=== PATIENT | female | born 1960 | race Hispanic/Latino ===

== ENCOUNTER 2018-01-02 16:17 | Emergency (ER) | payer MEDICARE ==
[~2018-01-02 16:17] MED LIST: ATOR20TA65 PO; DICY20TA11 PO; ESOM40CA54 PO; FAMO20TA8 PO; GABA-533 PO; LISI-613 PO; LORA1TAB3 PO; METO10TA3 PO; MONT10TA24 PO; SERT100T12 PO
[2018-01-02] MEDS ORDERED: SODIUM CHLORIDE 0.9% 1000ML 1,000 ML IV ONE (17:01)
[2018-01-02 17:04] LABS: BASOPHILS % (AUTO) 1.3 % (0.0-5.0); EOSINOPHILS % (AUTO) 1.2 % (0.0-8.0); HEMATOCRIT 43.7 % (36-48); MEAN CORPUSCULAR HEMOGLOBIN 33.6 pg (27.0-33.0); MEAN CORPUSCULAR HGB CONC 35.3 g/dL (32.0-36.0); MEAN CORPUSCULAR VOLUME 95.1 fL (79-99); MONOCYTES % (AUTO) 5.1 % (3.0-13.0); NEUTROPHILS % (AUTO) 68.4 % (40.0-77.0); NUCLEATED RED BLOOD CELLS 0.1 % (0.0-0.19); PLATELET COUNT (AUTO) 250 K/uL (130-400); RED CELL DISTRIBUTION WIDTH 12.9 % (11.0-15.5); WHITE BLOOD COUNT (AUTO) 11.7 K/uL (4.8-10.8)
[2018-01-02 17:15] LABS: CREATININE 0.8 mg/dL (0.5-1.5); POTASSIUM 3.7 mmol/L (3.5-5.1)
[2018-01-02 17:28] LABS: ALBUMIN 3.5 g/dL (3.5-5.0); BILIRUBIN,TOTAL 0.6 mg/dL (0.2-1.0); TOTAL PROTEIN, SERUM 7.1 g/dL (6.0-8.3)
== END 2018-01-02 18:19 | disposition home or self-care (01) ==
LOC: EDH 16:17
DX: R55 Syncope and collapse (principal); Z90.49 Acquired absence of other specified parts of digestive tract; Z98.51 Tubal ligation status; Z98.890 Other specified postprocedural states; Z72.0 Tobacco use; Z88.6 Allergy status to analgesic agent
CPT/HCPCS: 36415; 80053; 84484; 85025; 93005; 96360; 99285; J7030

== ENCOUNTER 2023-03-13 11:49 | Emergency (ER) | payer MEDICARE, OTHER ==
[~2023-03-13] VITALS: Ht 154.9 cm; Wt 52.2 kg
[~2023-03-13 11:49] MED LIST changes: -DICY20TA11 PO; +DICY20TA3 PO; -GABA-533 PO; +GABA-534 PO; -LISI-613 PO; +LISI20TA24 PO; +MONT-39 PO; -MONT10TA24 PO; +OXYC-38 PO; +SERT-440 PO; -SERT100T12 PO; +SULF1TAB42 PO
[2023-03-13 12:31] LABS: BASOPHILS # (AUTO) 0.03 K/uL (0.00-0.20); BASOPHILS % (AUTO) 0.3 % (0.0-5.0); EOSINOPHILS # (AUTO) 0.08 K/uL (0.00-0.70); EOSINOPHILS % (AUTO) 0.9 % (0.0-8.0); HEMATOCRIT 38.8 % (36-48); IMMATURE GRANULOCYTE ABSOLUTE 0.03 K/uL (0-1); LYMPHOCYTES % (AUTO) 11.7 % (21.0-51.0); MEAN CORPUSCULAR HEMOGLOBIN 31.6 pg (27.0-33.0); MEAN CORPUSCULAR HGB CONC 33.8 g/dL (32.0-36.0); MEAN CORPUSCULAR VOLUME 93.5 fL (79-99); MONOCYTES # (AUTO) 0.5 K/uL (0.1-1.0); MONOCYTES % (AUTO) 6.1 % (3.0-13.0); NEUTROPHILS % (AUTO) 80.7 % (40.0-77.0); PLATELET COUNT (AUTO) 337 K/uL (130-400); RED BLOOD CELL COUNT(AUTO) 4.15 MIL/uL (4.00-5.50); WHITE BLOOD COUNT (AUTO) 8.7 K/uL (4.8-10.8)
[2023-03-13 12:43] LABS: CARBON DIOXIDE 26 mmol/L (21-32); CHLORIDE 101 mmol/L (101-111); CREATININE 0.5 mg/dL (0.5-1.5); GLOMERULAR FILTR. RATE CALC 107 mL/min (>90); GLUCOSE,RANDOM 133 mg/dL (70-105); POTASSIUM 3.6 mmol/L (3.5-5.1); SODIUM SERUM 137 mmol/L (136-145); UREA NITROGEN, BLOOD 13 mg/dL (7-18)
[2023-03-13 12:47] LABS: ALBUMIN 3.6 g/dL (3.5-5.0); ASPARTATE AMINOTRANSFERASE 5 U/L (10-37); BILIRUBIN,TOTAL 0.6 mg/dL (0.2-1.0); TOTAL PROTEIN, SERUM 7.6 g/dL (6.0-8.3)
[2023-03-13 12:48] LABS: ALANINE AMINOTRANSFERASE < 6 U/L (12-78)
[2023-03-13 12:57] LABS: APPEARANCE,URINE CLOUDY (CLEAR); BILIRUBIN,URINE NEGATIVE (NEGATIVE); COLOR,URINE YELLOW (YELLOW); GLUCOSE, URINE (UA) NEGATIVE (NEGATIVE); KETONES,URINE NEGATIVE (NEGATIVE); LEUKOCYTE ESTERASE ,URINE 500 Leu/uL (NEGATIVE); NITRATE,URINE NEGATIVE (NEGATIVE); OCCULT BLOOD,URINE SMALL (NEGATIVE); PROTEIN,URINE 20 mg/dL (NEGATIVE)
[2023-03-13 13:00] LABS: ADD UA MICROSCOPIC YES
[2023-03-13 13:05] LABS: BACTERIA,URINE MOD /HPF (None Seen); MUCUS,URINE FEW LPF (None Seen); SQUAMOUS EPITHELIAL CELL,UR MANY /HPF (0-2); WBC,URINE 51-100 /HPF (0-1)
[2023-03-13 13:10] VITALS: BP 124/66; PULSE 66; RESP 20; O2SAT 99
[2023-03-13] MEDS ORDERED: FAMOTIDINE 20MG VIAL IV ONE (13:30)
[2023-03-13] MEDS ORDERED: LACTATED RINGERS 1000ML 1,000 ML IV ONE (13:30)
[2023-03-13] MEDS ORDERED: METOCLOPRAMIDE 10 MG/2 ML VIAL IVP ONE (13:30)
[2023-03-13] MEDS ORDERED: MORPHINE 4 MG SYG IVP ONE (13:30)
[2023-03-13] MEDS ORDERED: CEPH500B PO (15:46)
[2023-03-13] MEDS ORDERED: FAMO-136 PO (15:46)
[2023-03-13] MEDS ORDERED: CEFTRIAXONE 2GM VIAL IVPB ONE (16:00)
== END 2023-03-13 16:24 | disposition home or self-care (01) ==
LOC: EDH 11:49
DX: K29.70 Gastritis, unspecified, without bleeding (principal); N39.0 Urinary tract infection, site not specified; F41.9 Anxiety disorder, unspecified; F32.A Depression, unspecified; K21.9 Gastro-esophageal reflux disease without esophagitis; Z79.899 Other long term (current) drug therapy
CPT/HCPCS: 99284; 96365; 96375; 80053; 83690; 85025; 87088; 81001; 36415; 93005; J7120; J3490; J0696; J2270; J2765

== ENCOUNTER 2023-03-19 12:37 | Emergency (ER) | payer OTHER ==
[~2023-03-19] VITALS: Ht 160 cm; Wt 79.4 kg
[~2023-03-19 12:37] MED LIST changes: +CEPH500B PO; +FAMO-136 PO
[2023-03-19] MEDS ORDERED: DICYCLOMINE HCL 10 MG/5 ML ML PO ONE (13:00)
[2023-03-19] MEDS ORDERED: MAG/ALUM/SIMETH 30 ML UDCUP PO ONE (13:00)
[2023-03-19] MEDS ORDERED: FAMOTIDINE 20MG TAB PO ONE (13:00)
[2023-03-19] MEDS ORDERED: ONDANSETRON 4MG INJ IVP ONE (13:00)
[2023-03-19] MEDS ORDERED: LIDOCAINE HCL 2% VISCOUS 15 ML UDCUP PO ONE (13:00)
[2023-03-19 13:09] LABS: BASOPHILS # (AUTO) 0.03 K/uL (0.00-0.20); BASOPHILS % (AUTO) 0.3 % (0.0-5.0); EOSINOPHILS # (AUTO) 0.01 K/uL (0.00-0.70); EOSINOPHILS % (AUTO) 0.1 % (0.0-8.0); HEMATOCRIT 37.7 % (36-48); IMMATURE GRANULOCYTE ABSOLUTE 0.04 K/uL (0-1); LYMPHOCYTES # (AUTO) 0.7 K/uL (1.0-4.8); MEAN CORPUSCULAR HEMOGLOBIN 31.7 pg (27.0-33.0); MEAN CORPUSCULAR HGB CONC 33.7 g/dL (32.0-36.0); MONOCYTES # (AUTO) 0.5 K/uL (0.1-1.0); MONOCYTES % (AUTO) 4.9 % (3.0-13.0); NEUTROPHILS # (AUTO) 8.2 K/uL (1.8-7.7); NEUTROPHILS % (AUTO) 87.3 % (40.0-77.0); PLATELET COUNT (AUTO) 346 K/uL (130-400); RED BLOOD CELL COUNT(AUTO) 4.01 MIL/uL (4.00-5.50); RED CELL DISTRIBUTION WIDTH 11.8 % (11.0-15.5); WHITE BLOOD COUNT (AUTO) 9.4 K/uL (4.8-10.8)
[2023-03-19 13:22] LABS: CREATININE 0.7 mg/dL (0.5-1.5); POTASSIUM 3.7 mmol/L (3.5-5.1)
[2023-03-19 13:26] LABS: BILIRUBIN,TOTAL 0.5 mg/dL (0.2-1.0); TOTAL PROTEIN, SERUM 7.3 g/dL (6.0-8.3)
[2023-03-19] MEDS ORDERED: MORPHINE 2 MG SYG IVP ONE (14:00)
[2023-03-19] MEDS ORDERED: 0.9%NACL 1000ML 1,000 ML IV ONE (14:00)
[2023-03-19] MEDS ORDERED: IOHEXOL-350 75 ML VIAL IV ONE (15:01)
[2023-03-19 16:53] VITALS: BP 142/78; PULSE 78; RESP 18; O2SAT 98
[2023-03-19 17:04] LABS: ADD UA MICROSCOPIC YES; APPEARANCE,URINE CLEAR (CLEAR); BILIRUBIN,URINE NEGATIVE (NEGATIVE); COLOR,URINE COLORLESS (YELLOW); GLUCOSE, URINE (UA) NEGATIVE (NEGATIVE); KETONES,URINE NEGATIVE (NEGATIVE); LEUKOCYTE ESTERASE ,URINE NEGATIVE Leu/uL (NEGATIVE); NITRATE,URINE NEGATIVE (NEGATIVE); OCCULT BLOOD,URINE NEGATIVE (NEGATIVE); PH,URINE 8.5 (5.0-8.0); PROTEIN,URINE 10 mg/dL (NEGATIVE); UROBILINOGEN,URINE 0.2 mg/dL (0.2-1.0)
[2023-03-19 17:06] LABS: BACTERIA,URINE RARE /HPF (None Seen); SQUAMOUS EPITHELIAL CELL,UR RARE /HPF (0-2); WBC,URINE 0-1 /HPF (0-1); YEAST,URINE BUDDING FEW /HPF (None Seen)
== END 2023-03-19 17:39 | disposition home or self-care (01) ==
LOC: EDH 12:37
DX: K29.70 Gastritis, unspecified, without bleeding (principal); F41.9 Anxiety disorder, unspecified; F32.A Depression, unspecified; K21.9 Gastro-esophageal reflux disease without esophagitis; Z98.890 Other specified postprocedural states; Z90.49 Acquired absence of other specified parts of digestive tract
CPT/HCPCS: 99285; 74178; 96374; 96375; 84484; 80053; 83690; 85025; 81001; 36415; 93005; J2270; J2405; Q9967

== ENCOUNTER 2024-08-11 22:07 | Emergency (ER) | payer OTHER, MEDICARE ==
[~2024-08-11 22:07] MED LIST changes: -ESOM40CA54 PO; +ESOM40CA66 PO; +IBUP-2070 PO
--- NOTE | 2024-08-11 22:29 | ERN ---
ED Note History of Present Illness Stated Complaint: ABDOMINAL PAIN, LETHARGIC Chief Complaint: Abdominal Pain Time Seen by MD: 22:11 Dictation: This is a 63-year-old female who was brought by EMS for abdominal pain and being very lethargic. They indicated that they found drug paraphernalia on her bed. She is easily arousable and answers questions appropriately but falls asleep quickly. She was eventually honest and admitted to doing cocaine. . Temperature 98 pulse 46 respirations 16 blood pressure 158/64 pulse oximetry 100% on room air Her chronic medical problems include anxiety, depression, bipolar disorder, hypercholesterolemia, GERD, history of asthma Allergies: Coded Allergies: No Known Drug Allergies (Unverified Allergy, Unknown, 07/23/22) Home Meds Active Scripts Nitrofurantoin Monohyd/M-Cryst (Macrobid 100 mg Capsule) 100 Mg Capsule, 1 CAP PO BID for 7 Days, #14 CAP 0 Refills Prov:LAINE CARROLL MD 08/12/24 Ibuprofen (Ibuprofen) 600 Mg Tablet, 600 MG PO Q6H PRN for PAIN, #30 TAB Prov:ALEJANDRA HARO MD 09/06/23 Cephalexin Monohydrate (Keflex) 500 Mg Cap, 500 MG PO QID for 10 Days, #40 CAP 0 Refills Prov:JODY BARR Sr., MD 03/13/23 Famotidine (Pepcid) 20 Mg Tablet, 20 MG PO BID, #60 TAB 2 Refills Prov:JODY BARR Sr., MD 03/13/23 Oxycodone HCl/Acetaminophen (Percocet 5-325 mg Tablet) 1 Each Tablet, 1 EACH PO Q6H for pain, #12 TAB 0 Refills Prov:ESTRELLITA PALENCIA MD 07/23/22 Sulfamethoxazole/Trimethoprim (Bactrim Ds Tablet) 1 Each Tablet, 1 TAB PO BID for 10 Days, #20 TAB 0 Refills Prov:ESTRELLITA PALENCIA MD 07/23/22 Reported Medications Dicyclomine HCl (Dicyclomine HCl) 20 Mg Tablet, 20 MG PO Q6 HOURS, TAB 09/08/16 Famotidine (Famotidine) 20 Mg Tablet, 20 MG PO AM, TAB 09/08/16 Montelukast Sodium (Montelukast Sodium) 10 Mg Tablet, 10 MG PO HS, TAB 09/08/16 Sertraline HCl (Sertraline HCl) 100 Mg Tablet, 100 MG PO BID, TAB 09/08/16 Atorvastatin Calcium (Atorvastatin Calcium) 20 Mg Tablet, 20 MG PO AM, TAB 09/08/16 Metoclopramide HCl (Metoclopramide HCl) 10 Mg Tablet, 10 MG PO QID, TAB 09/08/16 Lisinopril (Lisinopril) 20 Mg Tablet, 20 MG PO AM, TAB 09/08/16 Esomeprazole Magnesium (Esomeprazole Magnesium) 40 Mg Capsule.dr, 40 MG PO BID, CAP 09/08/16 Lorazepam (Lorazepam) 1 Mg Tablet, 1 MG PO HS, TAB 09/08/16 Gabapentin (Gabapentin) 400 Mg Capsule, 400 MG PO TID, CAP 09/08/16 Past Medical History Past Medical History: Anxiety, Bipolar, Depression, Schizophrenia Additional Past Medical Hx: OSTEOARTHRITIS Surgical History: Unknown Social History: Drugs (Cocaine abuse), Negative History: Not Applicable RN Note Reviewed/Agreed w/PFSH: Yes Review of System Dictation Constitutional: Negative for fever,chills, and weight loss Eyes: Negative for injury, pain,redness, and discharge ENT: Negative for injury,pain or swelling Cardiovascular: Negative for chest pain, palpitations, and edema Respiratory: Negative for shortness of breath, cough, and wheezing, Abdomen/GI: Negative for abdominal pain, nausea, vomiting, diarrhea, and constipation Back: Negative for injury and pain : Negative for injury, bleeding and discharge MS/Extremity: Negative for injury and deformity Skin: Negative for rash, and discoloration Neuro: Negative for headache, weakness, numbness, tingling, and seizure Psych: Negative for suicide ideation, homicidal ideation, and hallucinations Initial Vital Sign VS Vital Signs Date Time Temp Pulse Resp B/P (MAP) Pulse Ox O2 Delivery O2 Flow Rate FiO2 08/11/24 22:10 98.1 46 16 158/64 100 Nonrebreathing Mask 10.0 08/11/24 22:54 21 Physical Exam Dictation General: awake, alert, NAD Head/Face: Normocephalic, atraumatic Eyes: PERRL, EOMI, vision at baseline ENT: oral cavity clear, TMs clear, no signs of infection Neck: Trachea midline, supple, no nuchal rigidity Cardiovascular: RRR, normal S1/S2, No MRGs, no JVD Respiratory: CTAB, no respiratory distress, No rales or wheezes Abdomen: Soft, non-tender, non-distended, normal bowel sounds, no guarding or rebound. Skin: Warm, dry, normal turgor, no rash MS/Extremity: Pulses equal, no cyanosis, neurovascular intact, FROM Neuro: COAx4, GCS 15, strength 5/5, CN 2-12 intact, normal cerebellar exam, normal gait, Psych: Normal behavior, mood, and affect normal Extremities-trace edema without any palpable cords, Homans sign is negative Results (Laboratory/Radiology) Laboratory/Radiology Laboratory Tests Test 08/11/24 22:43 08/12/24 02:28 White Blood Count 9.2 K/uL (4.8-10.8) Red Blood Count 4.36 MIL/uL (4.00-5.50) Hemoglobin 12.6 g/dL (12.0-16.0) Hematocrit 39.0 % (36-48) Mean Corpuscular Volume 89.4 fL (79-99) Mean Corpuscular Hemoglobin 28.9 pg (27.0-33.0) Mean Corpuscular Hemoglobin Concent 32.3 g/dL (32.0-36.0) Red Cell Distribution Width 13.3 % (11.0-15.5) Platelet Count 304 K/uL (130-400) Mean Platelet Volume 9.0 fL (7.5-10.5) Immature Granulocyte % (Auto) 0.3 % (0-1) Neutrophils (%) (Auto) 87.4 % (40.0-77.0) H Lymphocytes (%) (Auto) 6.1 % (21.0-51.0) L Monocytes (%) (Auto) 5.3 % (3.0-13.0) Eosinophils (%) (Auto) 0.5 % (0.0-8.0) Basophils (%) (Auto) 0.4 % (0.0-5.0) Neutrophils # (Auto) 8.0 K/uL (1.8-7.7) H Lymphocytes # (Auto) 0.6 K/uL (1.0-4.8) L Monocytes # (Auto) 0.5 K/uL (0.1-1.0) Eosinophils # (Auto) 0.05 K/uL (0.00-0.70) Basophils # (Auto) 0.04 K/uL (0.00-0.20) Absolute Immature Granulocyte (auto 0.03 K/uL (0-1) Nucleated Red Blood Cells 0.0 % (0.0-0.19) White Cell Morphology Comment CONSISTENT W/DIFF Platelet Morphology LARGE PLTS PRESENT Sodium Level 139 mmol/L (136-145) Potassium Level 3.9 mmol/L (3.5-5.1) Chloride Level 103 mmol/L (101-111) Carbon Dioxide Level 31 mmol/L (21-32) Blood Urea Nitrogen 9 mg/dL (7-18) Creatinine 0.6 mg/dL (0.5-1.0) Glomerular Filtration Rate Calc 101 mL/min (>90) Random Glucose 130 mg/dL (70-105) H Total Calcium 8.8 mg/dL (8.5-10.1) Total Creatine Kinase 38 U/L (21-232) # Salicylates Level < 2.8 mg/dL (2.8-20.0) L Acetaminophen Level < 1 mcg/mL (10-30) L Serum Alcohol < 3 mg/dL (0-10) Urine Color YELLOW (YELLOW) Urine Appearance CLOUDY (CLEAR) H Urine pH 7.0 (5.0-8.0) Urine Specific [place] 1.017 (1.001-1.031) Urine Protein NEGATIVE mg/dL (NEGATIVE) Urine Glucose (UA) NEGATIVE mg/dL (NEGATIVE) Urine Ketones 40 mg/dL (NEGATIVE) H Urine Occult Blood SMALL (NEGATIVE) H Urine Nitrate NEGATIVE (NEGATIVE) Urine Bilirubin NEGATIVE mg/dL (NEGATIVE) Urine Urobilinogen 2.0 mg/dL (0.2-1.0) H Urine Leukocyte Esterase 250 Rishi/uL (NEGATIVE) H Urine RBC 6-10 /HPF (0-1) H Urine WBC 11-25 /HPF (0-1) H Urine Squamous Epithelial Cells RARE /HPF (0-2) Urine Bacteria RARE /HPF (None Seen) Urine Opiates Screen NEGATIVE (NEGATIVE) Urine Barbiturates Screen NEGATIVE (NEGATIVE) Urine Phencyclidine Screen NEGATIVE (NEGATIVE) Urine Amphetamines Screen NEGATIVE (NEGATIVE) Urine Benzodiazepines Screen NEGATIVE (NEGATIVE) Urine Cocaine Screen POSITIVE (NEGATIVE) H Urine Marijuana (THC) Screen NEGATIVE (NEGATIVE) Labs Reviewed?: Yes EKG Comment: Twelve lead EKG done on 08/11/2024 at 10:40 p.m. showed a heart rate of 48, IN interval 129, QRS 86, QT/QTC 463/413 Impression sinus bradycardia with overall somewhat low voltage no acute ST elevations or deep ST depressions noted. Interpreted by Dr. Margaret BOWEN MD ED Course ED Course Orders Procedure Category Date Status Time Cbc With Differential LAB 08/11/24 Complete : Alcohol, Blood LAB 08/11/24 Complete : Salicylate LAB 08/11/24 Complete 22: Acetaminophen LAB 08/11/24 Complete 22: Urinalysis Profile LAB 08/11/24 Complete 22: Chest 1vw RAD 08/11/24 Resulted 22: 12 Lead Ekg Tracing- EKG 08/11/24 Logged Technical 22: 0.9%Nacl 1000ml (Ns PHA 08/11/24 In Process 1000ml) 22:30 Creatine Kinase, Total LAB 08/11/24 Complete 22: Basic Metabolic Panel LAB 08/11/24 Complete 22:25 Drug Screen Urine LAB 08/11/24 Complete 22:25 Ondansetron 4mg Inj PHA 08/12/24 Complete (Zofran 4mg Inj) 00:00 Culture Urine SHAHZAD 08/12/24 In Process 03:20 Ceftriaxone 1g Vial PHA 08/12/24 Complete (Rocephine 1g Inj) 04:00 Current Medications Medications (Trade) Dose Ordered Sig/[place] Route PRN Reason Start Time Stop Time Status Last Admin Dose Admin Ceftriaxone Sodium (ROCEphine 1G INJ) 1 gm ONCE ONCE IVPB 08/12/24 04:00 08/12/24 04:01 DC 08/12/24 05:06 Ondansetron HCl (zoFRAN 4MG INJ) 4 mg ONCE ONCE IVP 08/12/24 00:00 08/12/24 00:01 DC 08/11/24 23:51 Sodium Chloride 1,000 ml @ 125 mls/hr ONCE ONCE IV 08/11/24 22:30 08/12/24 06:29 08/11/24 23:07 Vital Signs Date Time Temp Pulse Resp B/P (MAP) Pulse Ox O2 Delivery O2 Flow Rate FiO2 08/12/24 02:56 98.4 62 18 145/62 100 Room Air* 0 21 08/11/24 22:54 98.4 56 18 133/65 99 Room Air* 0 21 08/11/24 22:10 98.1 46 16 158/64 100 Nonrebreathing Mask 10.0 We will perform diagnostic labs, advanced imaging and administer medications according to the patient's complaint. Once the results are available, will review and personally interpreted the labs to rule out any acute life- threatening emergency the trach require immediate intervention and treatment. I will then re-evaluate the patient after treatment and diagnostic exams have return to determine whether the patient requires any further testing, can safely be discharged home or need further admission to hospital for additional treatment and evaluation. There was an inordinate delay in obtaining labs and urinalysis as patient was not ready to urinate. She refused to have the nurses straight cath in and out. Patient received fluids after which she was able to give a urine sample . CBC BNP 7 are within normal limits chest x-ray was negative for any acute infiltrate. Serum salicylate levels Tylenol levels were negative alcohol level was less than 3. Urine drug screen was positive for cocaine Urinalysis was significant for increased leuko esterase and WBCs consistent with UTI Empiric antibiotic therapy we will give a dose of Rocephin Patient is very awake alert easily answers all the questions appropriately and oriented x4 I will discharge her with outpatient antibiotic therapy. Patient has to call her ride to pick her up. Medical Decision Making MDM MDM: Differential diagnosis: Lethargy from recreational drugs, acute metabolic encephalopathy from sepsis, Rationale: Tests considered and ordered secondary to shared decision making include: Previous outside records reviewed: Old ER visits. Risk of complication and/or morbidity or mortality of patient management: None Medications-Per medication reconciliation Need for hospitalization: Patient does not meet criteria for hospitalization. Need for emergency major/minor surgery: No There are no social concerns with this patient. Prescription drug management Prescriptions will include symptomatic care Patient's prior external medical records from other ER visits were reviewed by me as indicated. Prior testing and results from previous visits were reviewed. Prior tests were taken into account with medical decision making and resource utilization, independent historian/historians were used to obtain complete medical history. I independently interpreted the test that were performed, results were reviewed by me and considered findings on radiology if ordered. Medical management and examination interpretation discussions were had by me with other qualified healthcare professionals as indicated for the patient's care. Problem List Problem List: (1) Lethargy (2) Acute metabolic encephalopathy (3) Cocaine abuse (4) Urinary tract infection DX & DISP Disposition: Discharge Departure Impression: Primary Impression: Acute metabolic encephalopathy Additional Impressions: Lethargy, Cocaine abuse, Urinary tract infection Condition: Stable Scripts Nitrofurantoin Monohyd/M-Cryst (Macrobid 100 mg Capsule) 100 Mg Capsule 1 CAP PO BID for 7 Days, #14 CAP 0 Refills Prov: LAINE CARROLL MD 08/12/24 Additional Instructions: Patient and the caregiver have been informed of all the diagnostic tests and the imaging conducted during the today's visit to the emergency room and has verbalized understanding of the results I have personally reviewed and interpreted all diagnostic exams performed here in the ER today as well as the vital signs documented by the nursing staff. The patient is now being discharged to home and should follow up with the primary care physician or the specialist as directed by the ER staff. Follow-up with primary care provider in 1 to 2 days. Take medications as directed here in the emergency room. Okay to continue home medications unless otherwise discussed during your visit in the emergency room today. Return to your nearest emergency room if symptoms worsen or if there is no improvement. Call 911 if you need immediate assistance. Take Tylenol or Motrin [id number] as needed and if no contraindications are present. Increase oral hydration. A wound culture or urine culture was ordered here in the emergency room department please follow-up with primary care provider and advise them to get repeat ports from our facility. If you had any Rock wrap/splints that were applied here, please do not remove them until you see your primary care or specialty. Referrals: EILEEN KEBEDE MD (PCP) LAINE CARROLL MD Aug 11, 2024 22:28
[2024-08-11 22:56] LABS: BASOPHILS # (AUTO) 0.04 K/uL (0.00-0.20); BASOPHILS % (AUTO) 0.4 % (0.0-5.0); EOSINOPHILS # (AUTO) 0.05 K/uL (0.00-0.70); EOSINOPHILS % (AUTO) 0.5 % (0.0-8.0); IMMATURE GRANULOCYTE ABSOLUTE 0.03 K/uL (0-1); LYMPHOCYTES # (AUTO) 0.6 K/uL (1.0-4.8); LYMPHOCYTES % (AUTO) 6.1 % (21.0-51.0); MEAN CORPUSCULAR HEMOGLOBIN 28.9 pg (27.0-33.0); MEAN CORPUSCULAR HGB CONC 32.3 g/dL (32.0-36.0); MEAN CORPUSCULAR VOLUME 89.4 fL (79-99); MONOCYTES # (AUTO) 0.5 K/uL (0.1-1.0); MONOCYTES % (AUTO) 5.3 % (3.0-13.0); NEUTROPHILS % (AUTO) 87.4 % (40.0-77.0); PLATELET COUNT (AUTO) 304 K/uL (130-400); RED BLOOD CELL COUNT(AUTO) 4.36 MIL/uL (4.00-5.50); RED CELL DISTRIBUTION WIDTH 13.3 % (11.0-15.5); WHITE BLOOD COUNT (AUTO) 9.2 K/uL (4.8-10.8)
[2024-08-11 23:06] LABS: CARBON DIOXIDE 31 mmol/L (21-32); CHLORIDE 103 mmol/L (101-111); CREATININE 0.6 mg/dL (0.5-1.0); GLOMERULAR FILTR. RATE CALC 101 mL/min (>90); GLUCOSE,RANDOM 130 mg/dL (70-105); POTASSIUM 3.9 mmol/L (3.5-5.1); SODIUM SERUM 139 mmol/L (136-145); UREA NITROGEN, BLOOD 9 mg/dL (7-18)
[2024-08-11] MEDS: 0.9%NACL 1000ML 1,000 ML IV ONE (23:07)
[2024-08-11 23:11] LABS: ACETAMINOPHEN < 1 mcg/mL (10-30); ALCOHOL, BLOOD < 3 mg/dL (0-10); CREATINE KINASE, TOTAL 38 U/L (21-232); SALICYLATE < 2.8 mg/dL (2.8-20.0)
[2024-08-11] MEDS: ondanSETRON 4MG INJ IVP ONE (23:51)
[2024-08-12 00:28] LABS: PLATELET MORPHOLOGY LARGE PLTS PRESENT; WBC MORPHOLOGY CONSISTENT W/DIFF
--- NOTE | 2024-08-12 00:52 | HMCIMG ---
CHEST 1VW HISTORY: Altered mental status COMPARISON: 09/06/2023 FINDINGS: A frontal projection of the chest was obtained. Prominent interstitial markings are seen with possible superimposed infiltrates. The heart is normal in size. Mild degenerative changes are seen. No evidence of aortic calcification is seen. IMPRESSION: 1. Prominent interstitial markings are seen with possible superimposed infiltrates.
[2024-08-12 02:57] LABS: APPEARANCE,URINE CLOUDY (CLEAR); BILIRUBIN,URINE NEGATIVE (NEGATIVE); COLOR,URINE YELLOW (YELLOW); GLUCOSE, URINE (UA) NEGATIVE (NEGATIVE); KETONES,URINE 40 mg/dL (NEGATIVE); LEUKOCYTE ESTERASE ,URINE 250 Leu/uL (NEGATIVE); NITRATE,URINE NEGATIVE (NEGATIVE); OCCULT BLOOD,URINE SMALL (NEGATIVE); PROTEIN,URINE NEGATIVE (NEGATIVE)
[2024-08-12 03:05] LABS: AMPHET/METH SCREEN,URINE NEGATIVE (NEGATIVE); BARBITURATE SCREEN, URINE NEGATIVE (NEGATIVE); BENZODIAZEPINES SCREEN,URINE NEGATIVE (NEGATIVE); CANNABINOID SCREEN,URINE NEGATIVE (NEGATIVE); COCAINE SCREEN,URINE POSITIVE (NEGATIVE); OPIATE SCREEN,URINE NEGATIVE (NEGATIVE); PHENCYCLIDINE SCREEN,URINE NEGATIVE (NEGATIVE)
[2024-08-12 03:19] LABS: ADD UA MICROSCOPIC YES
[2024-08-12 03:32] LABS: BACTERIA,URINE RARE /HPF (None Seen); MUCUS,URINE RARE LPF (None Seen); SQUAMOUS EPITHELIAL CELL,UR RARE /HPF (0-2)
[2024-08-12] MEDS ORDERED: NITR100C4 PO (03:52)
[2024-08-12] MEDS: cefTRIAXone 1G VIAL IVPB ONE (05:06)
--- NOTE | 2024-08-12 05:17 | NUR ---
PHONED PT'S [place], SHE IS COMING TO PICK THE PT UP FROM ER IN AM. CONTACT NUMBER [phone]
[2024-08-12 05:21] VITALS: BP 135/66; PULSE 56; RESP 18; TEMP 98.4; O2SAT 99
--- NOTE | 2024-08-12 06:05 | EKG ---
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
== END 2024-08-12 08:02 | disposition home or self-care (01) ==
LOC: EDH 22:07
DX: G93.41 Metabolic encephalopathy (principal); R53.83 Other fatigue; F14.10 Cocaine abuse, uncomplicated; N39.0 Urinary tract infection, site not specified; F20.9 Schizophrenia, unspecified; F41.9 Anxiety disorder, unspecified; M19.90 Unspecified osteoarthritis, unspecified site; Z79.899 Other long term (current) drug therapy; Z87.440 Personal history of urinary (tract) infections
CPT/HCPCS: 99285; 96374; 71045; 82550; 80048; 80305; 85025; 87086; 36415; 93005; 81001; 96375; G0481; J2405; J0696

== ENCOUNTER 2025-03-25 12:23 | Emergency (ER) | payer MEDICARE ==
[~2025-03-25] VITALS: Ht 157.5 cm; Wt 54.4 kg
[~2025-03-25 12:23] MED LIST changes: +IBUP-1492 PO; -IBUP-2070 PO; +NITR100C4 PO
--- NOTE | 2025-03-25 12:33 | NUR ---
PT JUST PLACED IN ED HALLWAY BED A1. FACESHEET WAS PROVIDED TO [facility].
--- NOTE | 2025-03-25 12:44 | EKG ---
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
[2025-03-25] MEDS: LACTATED RINGERS 1000ML 1,000 ML IV ONE (12:59)
--- NOTE | 2025-03-25 13:00 | ERN ---
General Chief Complaint: Abdominal Pain Stated Complaint: ABDOMINAL PAIN X 2 DAYS Time Seen by MD: 12:28 History of Present Illness Initial Comments 64-year-old female brought in by EMS from home for abdominal pain. Patient has a history of gastric bypass. History of cocaine abuse. Recently used yesterday. She reports epigastric pain. Vomiting. No diarrhea. No fevers. She reports that she has had these similar pains, they began after her gastric bypass in 2017. Allergies: Coded Allergies: No Known Drug Allergies (Unverified Allergy, Unknown, 07/23/22) Home Meds Active Scripts Nitrofurantoin Monohyd/M-Cryst (Macrobid 100 mg Capsule) 100 Mg Capsule, 1 CAP PO BID for 7 Days, #14 CAP 0 Refills Prov:LAINE CARROLL MD 08/12/24 Ibuprofen (Ibuprofen) 600 Mg Tablet, 600 MG PO Q6H PRN for PAIN, #30 TAB Prov:ALEJANDRA HARO MD 09/06/23 Cephalexin Monohydrate (Keflex) 500 Mg Cap, 500 MG PO QID for 10 Days, #40 CAP 0 Refills Prov:JODY BARR Sr., MD 03/13/23 Famotidine (Pepcid) 20 Mg Tablet, 20 MG PO BID, #60 TAB 2 Refills Prov:JODY BARR Sr., MD 03/13/23 Oxycodone HCl/Acetaminophen (Percocet 5-325 mg Tablet) 1 Each Tablet, 1 EACH PO Q6H for pain, #12 TAB 0 Refills Prov:ESTRELLITA PALENCIA MD 07/23/22 Sulfamethoxazole/Trimethoprim (Bactrim Ds Tablet) 1 Each Tablet, 1 TAB PO BID for 10 Days, #20 TAB 0 Refills Prov:ESTRELLITA PALENCIA MD 07/23/22 Reported Medications Dicyclomine HCl (Dicyclomine HCl) 20 Mg Tablet, 20 MG PO Q6 HOURS, TAB 09/08/16 Famotidine (Famotidine) 20 Mg Tablet, 20 MG PO AM, TAB 09/08/16 Montelukast Sodium (Montelukast Sodium) 10 Mg Tablet, 10 MG PO HS, TAB 09/08/16 Sertraline HCl (Sertraline HCl) 100 Mg Tablet, 100 MG PO BID, TAB 09/08/16 Atorvastatin Calcium (Atorvastatin Calcium) 20 Mg Tablet, 20 MG PO AM, TAB 09/08/16 Metoclopramide HCl (Metoclopramide HCl) 10 Mg Tablet, 10 MG PO QID, TAB 09/08/16 Lisinopril (Lisinopril) 20 Mg Tablet, 20 MG PO AM, TAB 09/08/16 Esomeprazole Magnesium (Esomeprazole Magnesium) 40 Mg Capsule.dr, 40 MG PO BID, CAP 09/08/16 Lorazepam (Lorazepam) 1 Mg Tablet, 1 MG PO HS, TAB 09/08/16 Gabapentin (Gabapentin) 400 Mg Capsule, 400 MG PO TID, CAP 09/08/16 Past Medical History Past Medical History: Anxiety, Bipolar, Depression, Schizophrenia, Other Medical History Other: OSTEOARTHRITIS,COCAINE ABUSE Past Surgical History: Unknown Social History Social History: Drugs, Negative Female( History) History: Not Applicable ROS Dictation CONSTITUTIONAL: No chills, no fever, no weakness, no diaphoresis, no malaise. HEAD/FACE: No signs of trauma. EENT: No eye pain, no blurred vision, no tearing, no double vision, no ear pain, no ear discharge, no nose pain, no nasal congestion, no throat pain, no throat swelling, no mouth pain. RESPIRATORY: No cough, no orthopnea, no SOB, no stridor, no wheezing. CARDIOVASCULAR: No chest pain, no edema, no palpitations, no syncope. GASTROINTESTINAL/ABDOMINAL: Epigastric pain vomiting. GENITOURINARY: No abnormal discharge, no dysuria, no frequent urination, no hematuria. No complaints of pain in the genitals. MUSCULOSKELETAL: No back pain, no gout, no joint pain, no joint swelling, no muscle pain, no muscle stiffness, no neck pain. INTEGUMENTARY: No change in color, no change in hair/nails, no dryness, no lesion, no lumps, no rash. NEUROLOGICAL/PSYCH: No anxiety, not depressed, no emotional problem, no headache, no numbness, no pre-existing deficit, no history of seizures, no tremors, no weakness. HEMATOLOGIC/LYMPHATIC: Not anemic, no history of blood clots, no apparent bleeding, no bruising, glands not swollen. All Systems Negative, Except as Noted. Physical Exam Physical Exam Dictation VITAL SIGNS: Reviewed. GENERAL APPEARANCE: Alert, oriented x3, no acute distress. HEAD AND FACE: Non-traumatic. EYES: PERRL, pink conjunctivas, eyelid no trauma, anterior chamber clear. EARS: Pinnas intact and no signs of trauma or erythema. Ear canals clear and no discharge. TMs no erythema. NOSE: No discharge, no bleeding. OROPHARYNX: Mouth normal, teeth no caries, tongue pink. Pharynx clear, no erythema. Tonsils no exudates, no abscesses noted. Mucous membrane moist. NECK: Supple, non-tender, no thyromegaly, no masses, no JVD, no bruits. BREAST: Deferred. CHEST: No tenderness, no crepitus, no paradoxical movement, no retractions. LUNGS: Clear, well-ventilated, symmetric, no rales, no wheezing, no rhonchi, no stridor, good breath sounds bilaterally. HEART: Regular rate, regular rhythm, no murmur, no gallops. VASCULAR: No peripheral edema. ABDOMEN: Soft, positive bowel sounds, nondistended, no guarding, nontender, no rebound, no masses no hepatomegaly, no splenomegaly, no Arevalo's sign, no hernias. RECTAL: Deferred. GENITAL: Deferred. NEUROLOGICAL: Normal speech, gross motor function intact, gross sensory function intact. MUSCULOSKELETAL: Neck nontender, full range of motion, back nontender, full range of motion. EXTREMITIES: Nontender, full range of motion. SKIN: Color pink, dry, no turgor, no rash, no lacerations, no abrasions, no contusions. LYMPHATICS: Deferred. Results Laboratory and Microbiology Lab and Micro Result Laboratory Tests Test 03/25/25 12:56 White Blood Count 6.7 K/uL (4.8-10.8) Red Blood Count 4.32 MIL/uL (4.00-5.50) Hemoglobin 12.8 g/dL (12.0-16.0) Hematocrit 39.5 % (36-48) Mean Corpuscular Volume 91.4 fL (79-99) Mean Corpuscular Hemoglobin 29.6 pg (27.0-33.0) Mean Corpuscular Hemoglobin Concent 32.4 g/dL (32.0-36.0) Red Cell Distribution Width 13.4 % (11.0-15.5) Platelet Count 288 K/uL (130-400) Mean Platelet Volume 8.8 fL (7.5-10.5) Immature Granulocyte % (Auto) 0.4 % (0-1) Neutrophils (%) (Auto) 82.3 % (40.0-77.0) H Lymphocytes (%) (Auto) 8.5 % (21.0-51.0) L Monocytes (%) (Auto) 7.4 % (3.0-13.0) Eosinophils (%) (Auto) 1.0 % (0.0-8.0) Basophils (%) (Auto) 0.4 % (0.0-5.0) Neutrophils # (Auto) 5.5 K/uL (1.8-7.7) Lymphocytes # (Auto) 0.6 K/uL (1.0-4.8) L Monocytes # (Auto) 0.5 K/uL (0.1-1.0) Eosinophils # (Auto) 0.07 K/uL (0.00-0.70) Basophils # (Auto) 0.03 K/uL (0.00-0.20) Absolute Immature Granulocyte (auto 0.03 K/uL (0-1) Nucleated Red Blood Cells 0.0 % (0.0-0.19) White Cell Morphology Comment See comments Sodium Level 134 mmol/L (136-145) L Potassium Level 3.8 mmol/L (3.5-5.1) Chloride Level 97 mmol/L (101-111) L Carbon Dioxide Level 30 mmol/L (21-32) Blood Urea Nitrogen 10 mg/dL (7-18) Creatinine 0.6 mg/dL (0.5-1.0) Glomerular Filtration Rate Calc 101 mL/min (>90) Random Glucose 125 mg/dL (70-105) H Total Calcium 9.5 mg/dL (8.5-10.1) Total Bilirubin 0.6 mg/dL (0.2-1.0) Direct Bilirubin 0.2 mg/dL (0.0-0.3) Aspartate Amino Transf (AST/SGOT) 11 U/L (10-37) Alanine Aminotransferase (ALT/SGPT) 11 U/L (12-78) L Alkaline Phosphatase 101 U/L (50-136) Total Creatine Kinase 32 U/L (21-232) Troponin I High Sensitivity 4 ng/L (4-50) Total Protein 7.9 g/dL (6.0-8.3) Albumin 3.6 g/dL (3.5-5.0) Lipase 20 U/L (16-77) MDM CC: Abdominal pain, vomiting Historian: Patient Comorbidities: History of gastric bypass, cocaine abuse, cholecystectomy Limitations by social determinants of health: None Differential diagnosis: Postsurgical complication, surgical complication, pancreatitis, gastritis, perforation, surgical pathology, dehydration, other. It VSS Labs (independently interpreted by me): CBC stable, BMP stable, liver enzymes stable, lipase stable, troponin stable. CT scan of the abdomen and pelvis with contrast shows no acute intra-abdominal or pelvic pathology. Low suspicion for any surgical pathology in their life threat. No signs of dehydration or significant infection. Treatment in ED included IV lactic Ringer's, IV Dilaudid with the frequent re- evaluations IV Zofran. Re-evaluation patient is stable. We will DC with pain control recommend PCP follow up ED Course Orders Procedure Category Date Status Time Cbc With Differential LAB 03/25/25 Complete 12:29 Troponin I High LAB 03/25/25 Complete Sensitivity 12:29 Urinalysis Profile LAB 03/25/25 Logged 12:29 Ct Abdomen/Pelvis CT 03/25/25 Resulted W/Contrast 12:29 12 Lead Ekg Tracing- EKG 03/25/25 Complete Technical 12:29 Lactated Ringers PHA 03/25/25 Complete 1000ml (Lactated 12:30 Hydromorphone 1 Mg PHA 03/25/25 Complete Inj (Dilaudid 1mg Inj 12:30 Ondansetron 4mg Inj PHA 03/25/25 Complete (Zofran 4mg Inj) 12:30 Creatine Kinase, Total LAB 03/25/25 Complete 12:29 Chest 1vw RAD 03/25/25 Resulted 12:29 Lipase LAB 03/25/25 Complete 12:29 Basic Metabolic Panel LAB 03/25/25 Complete 12:29 Hepatic Function Panel LAB 03/25/25 Complete 12:29 Iohexol (Omnipaque) PHA 03/25/25 Complete 14:08 Current Medications Medications (Trade) Dose Ordered Sig/[place] Route PRN Reason Start Time Stop Time Status Last Admin Dose Admin Hydromorphone HCl (DiLAUDid 1MG INJ) 1 mg ONCE ONCE IVP 03/25/25 12:30 03/25/25 12:34 DC 03/25/25 12:59 Iohexol (Omnipaque) 75 ml STK-MED ONCE IV 03/25/25 14:08 03/25/25 14:08 DC Lactated Ringer's 1,000 ml @ 0 mls/hr ONCE ONCE IV 03/25/25 12:30 03/25/25 12:34 DC 03/25/25 12:59 Ondansetron HCl (zoFRAN 4MG INJ) 4 mg ONCE ONCE IVP 03/25/25 12:30 03/25/25 12:34 DC 03/25/25 12:59 Vital Signs Date Time Temp Pulse Resp B/P (MAP) Pulse Ox O2 Delivery O2 Flow Rate FiO2 03/25/25 13:00 98.1 55 20 136/56 99 Room Air* 0 21 DX & DISP Disposition: Discharge Departure Impression: Primary Impression: Gastritis Condition: Stable Scripts Pantoprazole Sodium (Protonix) 40 Mg Ectab 1 TAB PO DAILY for 30 Days, #30 TAB 0 Refills Prov: DORIS FORRESTER DO 03/25/25 Additional Instructions: Your symptoms are consistent with gastritis. Your labs are unremarkable. Your CT scan is stable. I've prescribed pantoprazole. Take as prescribed. Follow up with your primary doctor. Return to the ED as needed. Referrals: EILEEN KEBEDE MD (PCP) DORIS FORRESTER DO Mar 25, 2025 13:00
[2025-03-25 13:04] LABS: IMMATURE GRANULOCYTE ABSOLUTE 0.03 K/uL (0-1); NUCLEATED RED BLOOD CELLS 0.0 % (0.0-0.19); PLATELET COUNT (AUTO) 288 K/uL (130-400); RED BLOOD CELL COUNT(AUTO) 4.32 MIL/uL (4.00-5.50); RED CELL DISTRIBUTION WIDTH 13.4 % (11.0-15.5); WHITE BLOOD COUNT (AUTO) 6.7 K/uL (4.8-10.8)
[2025-03-25 13:15] LABS: CREATININE 0.6 mg/dL (0.5-1.0); GLOMERULAR FILTR. RATE CALC 101.0 mL/min (>90); GLUCOSE,RANDOM 125.0 mg/dL (70-105); SODIUM SERUM 134.0 mmol/L (136-145); UREA NITROGEN, BLOOD 10.0 mg/dL (7-18)
[2025-03-25 13:19] LABS: ASPARTATE AMINOTRANSFERASE 11.0 U/L (10-37); CREATINE KINASE, TOTAL 32.0 U/L (21-232); TOTAL PROTEIN, SERUM 7.9 g/dL (6.0-8.3)
[2025-03-25] MEDS ORDERED: IOHEXOL-350 75 ML VIAL IV ONE (14:08)
[2025-03-25 15:00] VITALS: BP 127/68; PULSE 53; RESP 20; TEMP 98.1; O2SAT 98
--- NOTE | 2025-03-25 15:04 | HMCIMG ---
EXAM: CT Abdomen and Pelvis with IV contrast CLINICAL HISTORY: Abdominal Pain TECHNIQUE: Axial computed tomography images of the abdomen and pelvis with intravenous contrast. CONTRAST: with intravenous contrast. COMPARISON: None provided. FINDINGS: LUNG BASES: Bilateral lower lung peripheral reticular opacities. No pleural effusions are seen. LIVER: Unremarkable. GALLBLADDER AND BILE DUCTS: The gallbladder is surgically absent. No radioopaque gallstones are seen. There is mild common bile duct dilatation not uncommon postcholecystectomy. There is mild intrahepatic biliary ductal dilatation PANCREAS: Unremarkable. SPLEEN: Unremarkable. ADRENAL GLANDS: Unremarkable. KIDNEYS, URETERS, AND BLADDER: The kidneys appear within normal limits. There is no hydronephrosis or hydroureter. No urinary calculi are seen. STOMACH AND BOWEL: Unremarkable appearance of the stomach and bowel. No evidence of bowel obstruction. No evidence suggesting enteritis or colitis. Gastric bypass surgical changes APPENDIX: No evidence of acute appendicitis on CT examination. PERITONEUM: No free fluid. No free air. LYMPH NODES: No lymphadenopathy is evident. REPRODUCTIVE: Unremarkable as visualized. VASCULATURE: No evidence of abdominal aortic aneurysm. BONES: No aggressive appearing osseous lesion. No acute osseous pathology evident. Mild abdominal and pelvic wall anascara. IMPRESSION: 1. No acute intraabdominal or pelvic pathology. 2. Bilateral lower lung peripheral reticular opacities. 3. Mild common bile duct and intrahepatic biliary ductal dilatation, not uncommon post-cholecystectomy. 4. Status post gastric bypass surgery. 5. Mild abdominal and pelvic wall anasarca. /[place]
--- NOTE | 2025-03-25 15:28 | HMCIMG ---
EXAM: CR Chest, 1 View. CLINICAL HISTORY: chest pain COMPARISON: X-ray chest 08/11/2024 FINDINGS: LUNGS: There is no mass, infiltrate, or acute pulmonary abnormality. PLEURAL SPACES: No pleural effusion or pneumothorax. MEDIASTINUM: Cardiac size and mediastinal contours within normal limits. BONES: No acute osseous abnormality. IMPRESSION: No acute cardiopulmonary pathology is evident. No significant change /[place]
[2025-03-25] MEDS ORDERED: PANT40TA55 PO (15:41)
[2025-03-25 15:49] LABS: APPEARANCE,URINE CLEAR (CLEAR); GLUCOSE, URINE (UA) NEGATIVE (NEGATIVE); LEUKOCYTE ESTERASE ,URINE NEGATIVE Leu/uL (NEGATIVE); NITRATE,URINE NEGATIVE (NEGATIVE); OCCULT BLOOD,URINE SMALL (NEGATIVE)
[2025-03-25 15:50] LABS: ADD UA MICROSCOPIC YES
[2025-03-25 15:52] LABS: SQUAMOUS EPITHELIAL CELL,UR RARE /HPF (0-2)
== END 2025-03-25 16:33 | disposition home or self-care (01) ==
LOC: EDH 12:23
DX: K29.70 Gastritis, unspecified, without bleeding (principal); F41.9 Anxiety disorder, unspecified; F31.9 Bipolar disorder, unspecified; F20.9 Schizophrenia, unspecified; M19.90 Unspecified osteoarthritis, unspecified site; Z79.899 Other long term (current) drug therapy; Z98.84 Bariatric surgery status
CPT/HCPCS: 99285; 74177; 96374; 96361; 71045; 96375; 82550; 80076; 84484; 80048; 83690; 85025; 81001; 36415; 93005; J7120; J1171; J2405; Q9967